=== PATIENT | male | born 1970 | race African-American/Black ===

== ENCOUNTER 2022-03-11 16:29 | Emergency (ER) | payer MEDICAID ==
[~2022-03-11] VITALS: Ht 175.3 cm; Wt 80.0 kg
[2022-03-11] MEDS ORDERED: ASPIRIN 325MG EC TABLET PO ONE (17:00)
[2022-03-11] MEDS ORDERED: ALBUTEROL (0.083%) 2.5MG/3ML NEB HHN STA ×2 (17:19→19:27)
[2022-03-11] MEDS ORDERED: METHYLPREDNISOLONE SOD SUCC 125 MG/2 ML VIAL IV STA (17:19)
[2022-03-11] MEDS ORDERED: IPRATROPIUM BROMIDE (0.02%) 0.5MG/2.5ML NEB HHN STA ×2 (17:19→19:27)
[2022-03-11 17:40] VITALS: BP 128/94
[2022-03-11 17:51] LABS: BASOPHILS % 0.1 % (0.0-2.0); EOSINOPHILS % 0.5 % (0.0-5.0); HEMATOCRIT. 38.8 % (42.0-52.0); HEMOGLOBIN. 12.9 g/dL (14.0-18.0); LYMPHOCYTES % 7.3 % (20.0-50.0); MEAN CORPUSCULAR HEMOGLOBIN 28.3 pg (28.0-32.0); MEAN CORPUSCULAR VOLUME 84.9 fL (80.0-94.0); MEAN PLATELET VOLUME 8.4 fl (7.4-10.4); NEUTROPHILS % 86.1 % (40.0-76.0); PLATELET 236 x1000/uL (130-400); RED BLOOD CELL COUNT 4.56 mill/uL (4.7-6.1); RED CELL DISTRIBUTION WIDTH 14.6 % (11.6-14.6)
[2022-03-11 18:01] LABS: CHLORIDE 104 mEq/L (98-107)
[2022-03-11] MEDS ORDERED: MAGNESIUM 2 G PREMIX 50 ML IV ONE (19:30)
[2022-03-11] MEDS ORDERED: MECLIZINE 25MG TABLET PO ONE (21:00)
== END 2022-03-11 23:07 | disposition home or self-care (01) ==
LOC: ER 16:29
DX: J45.901 Unspecified asthma with (acute) exacerbation (principal); R07.89 Other chest pain
CPT/HCPCS: 36415; 71045; 80053; 83690; 83880; 84484; 85025; 93005; 96374; 99285; J2930; J3475; Z7610

== ENCOUNTER 2024-09-04 10:51 | Emergency (ER) | payer MEDICAID ==
[~2024-09-04] VITALS: Ht 177.8 cm; Wt 91.0 kg
[2024-09-04 10:53] VITALS: TEMP 36.9; O2SAT 96
[2024-09-04] MEDS: CYCLOBENZAPRINE 10MG TABLET PO ONE (11:45)
[2024-09-04] MEDS: KETOROLAC 30MG/ML VIAL IM ONE (11:45)
[2024-09-04] MEDS: LIDOCAINE 5% PATCH TOP SCH (11:45)
[2024-09-04] MEDS ORDERED: LIDO-53 TP (13:14)
[2024-09-04] MEDS ORDERED: CYCL10TA21 MT (13:14)
[2024-09-04] MEDS ORDERED: KETO10TA2 MT (13:14)
[2024-09-04 13:27] VITALS: BP 138/72; PULSE 63; RESP 16; O2SAT 100
== END 2024-09-04 13:31 | disposition home or self-care (01) ==
LOC: ER 10:51
DX: G89.29 Other chronic pain (principal); M54.50 Low back pain, unspecified; M25.561 Pain in right knee; M25.562 Pain in left knee; J45.909 Unspecified asthma, uncomplicated
CPT/HCPCS: 73562; 29505; 96372; 99283; J1885; Z7610